=== PATIENT | female | born 1935 | race Caucasian/White ===

== ENCOUNTER 2017-10-10 10:58 | Inpatient (IN) | payer BC ==
[~2017-10-10] VITALS: Ht 152.4 cm; Wt 50.7 kg
[2017-10-10 13:53] LABS: Basophils # (auto) 0.2 uL; Basophils % (auto) 1.3 % (0.0-2.0); Eosinophils # (auto) 0 uL; Hemoglobin 11.2 g/dL (12.2-16.2); Monocytes # (auto) 0.5 uL; Neutrophils % (auto) 80.9 % (37.0-80.0)
[2017-10-10 13:55] LABS: Eosinophils % (auto) 0.3 % (0.0-7.0); Hematocrit 34.9 % (36.0-46.0); Lymphocytes % (auto) 13.9 % (10.0-50.0); Mean Corpuscular Hemoglobin 25.7 pg (28.0-32.0); Mean Corpuscular Hgb Conc. 32.2 g/dL (32.0-36.0); Mean Corpuscular Volume 79.8 fL (80.0-100.0); Monocytes % (auto) 3.6 % (0.0-12.0); Neutrophils # (auto) 11.6 uL; Nucleated Red Blood Cells % 0.1 %; Platelet Count (auto) 377 10^3/uL (140-450); Red Blood Cells 4.37 10^6/uL (4.0-5.20); Red Cell Distribution Width 15.3 % (11.8-14.3); White Blood Cell 14.3 10^3/uL (4.4-10.8)
[2017-10-10 14:08] LABS: INR 0.98 (0.9-1.15); Partial Thromboplastin Time 27.6 sec (22.64-33.71); Prothrombin Time 10.7 sec (9.37-12.3)
[2017-10-10] MEDS ORDERED: cefTRIAXone 1GM/10ml IVPUSH 10 ML IV ONE (15:30)
[2017-10-10 15:35] LABS: Albumin 2.7 g/dL (3.4-5.0); BUN/Creatinine Ratio 22.7; Bilirubin, Total 0.3 mg/dL (0.2-1.0); Total Protein 7.4 g/dL (6.4-8.2)
[2017-10-10] MEDS ORDERED: LORazepam 0.5 MG TAB PO PRN (19:00)
[2017-10-10] MEDS ORDERED: ACETAMINOPHEN 500 MG TAB PO PRN (19:00)
[2017-10-10] MEDS ORDERED: TEMAZEPAM 15 MG CAP PO PRN (19:00)
[2017-10-10] MEDS ORDERED: PROMETHAZINE HCL 25 MG/ML 1ML IV PRN (19:00)
[2017-10-10] MEDS ORDERED: HYDROcodone-ACET 5/325MG TAB PO PRN (19:00)
[2017-10-10 19:24] LABS: CRP High Sensitivity 5.54 mg/dL (< 0.3); Uric Acid 5.1 mg/dL (2.6-6.0)
[2017-10-10] MEDS: SODIUM CHLORIDE 0.9% 1,000 ML IV SCH (19:24)
[2017-10-10] MEDS: CLINDAMYCIN 600MG IV 50 ML IV SCH (22:28)
[2017-10-10 23:15] VITALS: BP 126/80
[2017-10-10 23:22] VITALS: BP 126/80
[2017-10-11 04:13] VITALS: BP 152/75
[2017-10-11] MEDS: CLINDAMYCIN 600MG IV 50 ML IV SCH ×3 (05:34→21:09)
[2017-10-11] MEDS ORDERED: MIRT30TA PO (07:02)
[2017-10-11] MEDS ORDERED: TRIA50TA2 PO (07:02)
[2017-10-11] MEDS ORDERED: MET50T PO (07:02)
[2017-10-11] MEDS ORDERED: HCTZ25T GT (07:02)
[2017-10-11] MEDS ORDERED: TAMS0.4C36 PO (07:02)
[2017-10-11] MEDS ORDERED: WARF5TAB71 PO (07:02)
[2017-10-11] MEDS ORDERED: LEVO50TA7 PO (07:02)
[2017-10-11 08:00] VITALS: BP 143/78
[2017-10-11] MEDS: HYDROmorphone HCL 2 MG/ML VL IV PRN ×2 (08:17→15:40)
[2017-10-11] MEDS: SODIUM CHLORIDE 0.9% 1,000 ML IV SCH ×2 (08:20→10:23)
[2017-10-11 08:30] VITALS: BP 143/78
[2017-10-11 08:33] LABS: Eosinophils # (auto) 0 uL; Hemoglobin 10.4 g/dL (12.2-16.2); Lymphocytes # (auto) 1.5 uL; Red Cell Distribution Width 14.9 % (11.8-14.3)
[2017-10-11 08:35] LABS: Basophils # (auto) 0.1 uL; Eosinophils % (auto) 0.3 % (0.0-7.0); Hematocrit 31.8 % (36.0-46.0); Lymphocytes % (auto) 12.8 % (10.0-50.0); Mean Corpuscular Hemoglobin 25.9 pg (28.0-32.0); Mean Corpuscular Hgb Conc. 32.8 g/dL (32.0-36.0); Mean Corpuscular Volume 78.9 fL (80.0-100.0); Monocytes # (auto) 0.4 uL; Monocytes % (auto) 3.7 % (0.0-12.0); Neutrophils # (auto) 9.5 uL; Neutrophils % (auto) 82.2 % (37.0-80.0); Platelet Count (auto) 319 10^3/uL (140-450); Red Blood Cells 4.03 10^6/uL (4.0-5.20); White Blood Cell 11.5 10^3/uL (4.4-10.8)
[2017-10-11] MEDS: cefTRIAXone 1GM/10ml IVPUSH 10 ML IV SCH (09:31)
[2017-10-11] MEDS: ENOXAPARIN SOD 40 MG/0.4 ML SYRINGE SC SCH (09:44)
[2017-10-11 11:45] VITALS: BP 120/51
[2017-10-11 17:30] VITALS: BP 148/63
[2017-10-11 18:56] LABS: Urine Bacteria NONE SEEN /hpf (None Seen); Urine Blood Negative /uL (Negative); Urine Mucus FEW (None Seen); Urine Specific Gravity 1.017 (1.001-1.035); Urine WBC 2 /hpf (0 - 5)
[2017-10-11 21:56] VITALS: BP 160/67
[2017-10-12] MEDS: CLINDAMYCIN 600MG IV 50 ML IV SCH (05:38)
[2017-10-12] MEDS: HYDROmorphone HCL 2 MG/ML VL IV PRN ×2 (05:40→09:40)
[2017-10-12 05:49] VITALS: BP 155/90
[2017-10-12 08:00] VITALS: BP 146/72
[2017-10-12 08:38] VITALS: BP 146/72
[2017-10-12] MEDS: cefTRIAXone 1GM/10ml IVPUSH 10 ML IV SCH (09:40)
[2017-10-12] MEDS: ENOXAPARIN SOD 40 MG/0.4 ML SYRINGE SC SCH ×2 (09:40→09:46)
[2017-10-12] MEDS ORDERED: CEL100T PO (12:07)
[2017-10-12] MEDS ORDERED: PANT40TA2 PO (12:08)
[2017-10-12 13:07] VITALS: BP 164/71
[2017-10-12 15:04] VITALS: BP 153/61
[2017-10-12] MEDS ORDERED: HYDROcodone-ACET 5/325MG TAB PO ONE (17:30)
== END 2017-10-12 18:40 | disposition home or self-care (01) | DRG 553 ==
LOC: ER 10:58 → OVERFLOW 10:59 → CENTRAL 22:52
PROVIDERS: ADMIT Internal Medicine; ATTEND Internal Medicine
DX: M17.12 Unilateral primary osteoarthritis, left knee (principal); E43 Unspecified severe protein-calorie malnutrition; F03.90 Unspecified dementia, unspecified severity, without behavioral disturbance, psychotic disturbance, mood disturbance, and anxiety; D72.829 Elevated white blood cell count, unspecified; M85.862 Other specified disorders of bone density and structure, left lower leg; M11.262 Other chondrocalcinosis, left knee; I10 Essential (primary) hypertension; R32 Unspecified urinary incontinence; M71.20 Synovial cyst of popliteal space [Baker], unspecified knee; Z86.73 Personal history of transient ischemic attack (TIA), and cerebral infarction without residual deficits; Z87.01 Personal history of pneumonia (recurrent); Z88.5 Allergy status to narcotic agent; Z90.49 Acquired absence of other specified parts of digestive tract
CPT/HCPCS: 36415; 71045; 73502; 73564; 73700; 80053; 81001; 83516; 84443; 84550; 85025; 85610; 85652; 85730; 86141; 86225; 86235; 86431; 87040; 87086; 93005; 93971; 96372; 96374; 96375; 97163; J3490

== ENCOUNTER → 2017-11-27 | Outpatient (CLI) | payer OTHER ==
[~2017-11-27] MED LIST: CEL100T PO; LEVO50TA7 PO; MET50T PO; MIRT30TA PO; PANT40TA2 PO; TRIA50TA2 PO
[2017-11-27 10:18] LABS: Basophils # (auto) 0.1 uL; Hematocrit 35.9 % (36.0-46.0); Hemoglobin 11.6 g/dL (12.2-16.2); Lymphocytes # (auto) 1.7 uL; Monocytes # (auto) 0.3 uL; Red Blood Cells 4.55 10^6/uL (4.0-5.20)
[2017-11-27 10:19] LABS: Eosinophils # (auto) 0 uL; Eosinophils % (auto) 0.5 % (0.0-7.0); Lymphocytes % (auto) 19.1 % (10.0-50.0); Mean Corpuscular Hemoglobin 25.5 pg (28.0-32.0); Mean Corpuscular Hgb Conc. 32.3 g/dL (32.0-36.0); Mean Corpuscular Volume 78.8 fL (80.0-100.0); Monocytes % (auto) 3.5 % (0.0-12.0); Neutrophils # (auto) 6.7 uL; Neutrophils % (auto) 75.9 % (37.0-80.0); Platelet Count (auto) 386 10^3/uL (140-450); White Blood Cell 8.9 10^3/uL (4.4-10.8)
[2017-11-27 10:36] LABS: Urine Bacteria MOD /hpf (None Seen); Urine Blood TRACE /uL (Negative); Urine Specific Gravity 1.019 (1.001-1.035); Urine WBC 582 /hpf (0 - 5)
[2017-11-27 10:38] LABS: Albumin 3.2 g/dL (3.4-5.0); BUN/Creatinine Ratio 22.2; Bilirubin, Total 0.3 mg/dL (0.2-1.0); Calcium 10.4 mg/dL (8.5-10.1); Potassium 3.7 mmol/L (3.5-5.1)
== END | disposition home or self-care (01) ==
LOC: LAB 09:53
PROVIDERS: ATTEND Family Medicine
DX: Z00.01 Encounter for general adult medical examination with abnormal findings (principal); E03.8 Other specified hypothyroidism; R79.89 Other specified abnormal findings of blood chemistry
CPT/HCPCS: 36415; 80053; 80061; 81001; 82306; 82607; 83036; 84443; 85025; 85652